=== PATIENT | male | born 1995 | race Two or more races ===

== ENCOUNTER 2023-04-11 08:03 | Day surgery (SDC) | payer BC ==
[~2023-04-11] VITALS: Ht 193 cm; Wt 100.4 kg
[2023-04-11] VITALS (13 sets, daily range): BP systolic 104–142; BP diastolic 47–80; PULSE 72–94; RESP 10–16; TEMP 98.4; O2SAT 98–100
[~2023-04-11 08:03] MED LIST: NO HOME MEDS; clindamycin-Cleocin 900mg/D5W 50 ML IV ONE; epiNEPHrine 1 mg/ml 30ml MDV ONE; famotidine 20mg tablet PO ONE; mupirocin 2% ointment 22GM ONE; oxymetazoline 15 ML nasal spray NS ONE; ringers solution, lacted 1,000 ML IV SCH; tranexamic acid 100mg/ml inj. ONE; tranexamic acid inj. 1,000 MG in normal saline IV soln 100ML IV ONE
[2023-04-11 09:29] LABS: BASOPHILS # (AUTO) 0.1 X10'3 (0-0.2); BASOPHILS % (AUTO) 1.6 % (0-1); EOSINOPHILS # (AUTO) 0.1 X10'3 (0-0.9); EOSINOPHILS % (AUTO) 1.8 % (0-6); LYMPHOCYTES # (AUTO) 1.6 X10'3 (1.1-4.8); LYMPHOCYTES % (AUTO) 26.6 % (21-51); MEAN CORPUSCULAR HEMOGLOBIN 30.3 PG (27.0-31.0); MEAN CORPUSCULAR HGB CONC 34.5 g/dL (33.0-36.5); MEAN PLATELET VOLUME 8.5 FL (7.4-10.4); MONOCYTES # (AUTO) 0.5 X10'3 (0-0.9); MONOCYTES % (AUTO) 8.2 % (2-12); NEUTROPHILS # (AUTO) 3.8 X10'3 (1.8-7.7); NEUTROPHILS % (AUTO) 61.8 % (42-75); PRE OP HEMATOCRIT 45.9 % (42.0-52.0); PRE OP HEMOGLOBIN 15.8 g/dL (14.0-17.9); PRE OP PLATELET COUNT 264 X10'3 (140-440); PRE OP WHITE BLOOD COUNT 6.1 10'3 (4.8-10.8); RED BLOOD COUNT 5.21 X10'6 (4.70-6.10); RED CELL DISTRIBUTION WIDTH 14.3 % (11.5-14.5)
[2023-04-11 09:34] LABS: PROTHROMBIN TIME 10.6 SECONDS (9.0-12.0)
[2023-04-11 09:36] LABS: ALBUMIN 4.2 G/DL (3.4-5.0); ALBUMIN/GLOBULIN RATIO 1.1 (1.1-1.5); ALKALINE PHOSPHATASE 93 IU/L (46-116); BLOOD UREA NITROGEN 13 MG/DL (7-18); BUN/CREATININE RATIO 13.1 (10.0-20.0); CALCIUM 9.5 MG/DL (8.5-10.1); CHLORIDE 102 MMOL/L (99-107); CREATININE 0.99 MG/DL (0.60-1.10); PRE OP ALT 22 U/L (30-65); PRE OP ANION GAP 9 (8-16); PRE OP AST 24 U/L (10-37); PRE OP GLUCOSE 103 MG/DL (70-104); PRE OP SODIUM 137 MMOL/L (135-145); TOTAL CARBON DIOXIDE 26.5 MMOL/L (24-32); TOTAL PROTEIN 8.2 G/DL (6.4-8.2); eCRCL 134 ML/MIN; eGFR 89 ML/MIN
[2023-04-11] MEDS ORDERED: cocaine 4% topical solution 4ml bottle ONE (09:53)
[2023-04-11] MEDS ORDERED: LIDOCAINE 1%/EPI 1:100,000 inj. 10 ML multi-dose vial ONE ×2 (09:55)
[2023-04-11] MEDS ORDERED: levoFLOXACIN-Levaquin 500mg/D5 100 ML IV ONE (10:04)
[2023-04-11] MEDS ORDERED: sevoflurane 250ml liquid IH ONE (10:26)
[2023-04-11] MEDS ORDERED: fentaNYL/PF 50MCG/1 ML 2ML syringe ONE (10:34)
[2023-04-11] MEDS ORDERED: midazolam 1 mg/ML 2ml injection ONE (10:35)
[2023-04-11] MEDS ORDERED: dexamethasone sod phosphate 4mg/ml inj. ONE (10:46)
[2023-04-11] MEDS ORDERED: propofol inj 20 ML IV ONE ×2 (10:46→11:31)
[2023-04-11] MEDS ORDERED: ondansetron/PF 4mg/2ml inj ONE (10:46)
[2023-04-11] MEDS ORDERED: LIDOcaine 2% (20mg/ml) 5ml vial ONE (10:46)
[2023-04-11] MEDS ORDERED: morphine 10mg/ml inj. ONE (11:02)
[2023-04-11] MEDS ORDERED: LIDOcaine 1% w/EPI 1:100,000 30ml vial (MDV) IJ ONE (11:23)
[2023-04-11] MEDS ORDERED: cocaine 4% topical solution 4ml bottle TP ONE (11:24)
[2023-04-11] MEDS ORDERED: oxymetazoline 15 ML nasal spray NS ONE (11:24)
[2023-04-11] MEDS ORDERED: epiNEPHrine 1 mg/ml 30ml MDV ENDO ONE (11:25)
[2023-04-11] MEDS ORDERED: mupirocin 2% cream 15gm TP ONE (11:27)
[2023-04-11] MEDS ORDERED: phenylephrine 10mg/ml inj. -priapism dosing ONE (11:32)
[2023-04-11] MEDS ORDERED: morphine 4 MG/ML inj SYRINge IV PRN (12:05)
[2023-04-11] MEDS ORDERED: proCHLORperazine 10 MG/2 ml inj IV PRN (12:05)
[2023-04-11] MEDS ORDERED: hydrALAZINE 20mg/ml inj. IV PRN (12:05)
[2023-04-11] MEDS ORDERED: ringers solution, lacted 1,000 ML IV SCH (12:05)
[2023-04-11] MEDS ORDERED: morphine 2 MG/ML inj. syringe IV PRN (12:05)
[2023-04-11] MEDS ORDERED: acetaminophen 1,000mg/100ml IV 100 ML IV ONE (12:05)
[2023-04-11] MEDS ORDERED: meperidine/PF 25mg/ml syringe IV PRN ×3 (12:05)
[2023-04-11] MEDS ORDERED: ondansetron/PF 4mg/2ml inj IV PRN (12:05)
[2023-04-11] MEDS ORDERED: labetalol 20mg/4ml (5mg/ml) syringe IV PRN (12:05)
[2023-04-11] MEDS ORDERED: mupirocin 2% nasal ointment 1gm UD NS SCH (13:00)
[2023-04-11] MEDS ORDERED: salt irrigation nasal spray 45 ML SPRAY NS SCH (13:00)
[2023-04-11] MEDS ORDERED: oxymetazoline 15 ML nasal spray NS SCH (20:00)
== END 2023-04-11 13:41 | disposition home or self-care (01) ==
LOC: PAS 08:03
PROVIDERS: ATTEND Otolaryngology
DX: J34.2 Deviated nasal septum (principal); J34.3 Hypertrophy of nasal turbinates; J34.89 Other specified disorders of nose and nasal sinuses; Z88.8 Allergy status to other drugs, medicaments and biological substances; Z79.899 Other long term (current) drug therapy; Z79.01 Long term (current) use of anticoagulants
CPT/HCPCS: 30140; 30520; 31240; 36415; 80053; 82948; 85025; 85610; A6402; J0171; J1100; J1956; J2250; J2274; J2370; J2405; J2704; J3010; J3490; J7030; J7050; J7120; Z7506; Z7508; Z7512; A4618; A6449; A7000